=== PATIENT | male | born 1950 | race Hispanic/Latino ===

== ENCOUNTER 2021-06-01 13:44 | Inpatient (IN) | payer OTHER ==
[~2021-06-01] VITALS: Ht 180.3 cm; Wt 63.5 kg
[2021-06-01 13:46] VITALS: BP 115/72
[2021-06-01 15:01] LABS: APPEARANCE,URINE Clear (CLEAR); BILIRUBIN,URINE Negative (NEGATIVE); COLOR,URINE Yellow (YELLOW); GLUCOSE, URINE (UA) Negative (NEGATIVE); KETONES,URINE Trace mg/dL (NEGATIVE); LEUKOCYTE ESTERASE ,URINE Moderate (NEGATIVE); NITRATE,URINE Negative (NEGATIVE); OCCULT BLOOD,URINE Negative (NEGATIVE); PROTEIN,URINE Trace mg/dL (NEGATIVE)
[2021-06-01 15:22] LABS: RBC,URINE 0-1 /HPF (0-1)
[2021-06-01 15:23] LABS: BACTERIA,URINE Few /HPF (None Seen)
[2021-06-01 15:24] LABS: MUCUS,URINE Rare LPF (None Seen); SQUAMOUS EPITHELIAL CELL,UR Few /HPF (0-2); TRANSITIONAL EPI CELLS,URINE Rare /HPF (None Seen)
[2021-06-01 15:27] LABS: BASOPHILS % (AUTO) 0.3 % (0.0-5.0); EOSINOPHILS % (AUTO) 0.1 % (0.0-8.0); LYMPHOCYTES % (AUTO) 5.2 % (21.0-51.0); MEAN CORPUSCULAR HEMOGLOBIN 27.9 pg (27.0-33.0); MEAN CORPUSCULAR HGB CONC 31.7 g/dL (32.0-36.0); MEAN CORPUSCULAR VOLUME 88.2 fL (79-99); MONOCYTES % (AUTO) 6.6 % (3.0-13.0); NEUTROPHILS % (AUTO) 87.4 % (40.0-77.0); PLATELET COUNT (AUTO) 506 K/uL (130-400); RED BLOOD CELL COUNT(AUTO) 4.08 MIL/uL (4.50-6.20); RED CELL DISTRIBUTION WIDTH 14.4 % (11.0-15.5); WHITE BLOOD COUNT (AUTO) 15.7 K/uL (4.8-10.8)
[2021-06-01] MEDS ORDERED: AZITHROMYCIN 250 MG TABLET PO ONE (15:30)
[2021-06-01] MEDS ORDERED: CEFTRIAXONE 1G VIAL IVP ONE (15:30)
[2021-06-01 15:38] LABS: CREATININE 0.8 mg/dL (0.5-1.5); POTASSIUM 3.3 mmol/L (3.5-5.1)
[2021-06-01 15:42] LABS: ALBUMIN 1.9 g/dL (3.5-5.0); BILIRUBIN,TOTAL 0.4 mg/dL (0.2-1.0); TOTAL PROTEIN, SERUM 8.4 g/dL (6.0-8.3)
[2021-06-01 15:52] LABS: CRP QUANTITATIVE 222.1 mg/L (0.00-9.0)
[2021-06-01 15:57] LABS: B-TYPE NATRIURETIC PEPTIDE 270 pg/mL (0-100)
[2021-06-01] MEDS ORDERED: POTASSIUM BICARB/CIT AC 25 MEQ TABLET.EFF PO ONE ×2 (16:00→20:00)
[2021-06-01] MEDS ORDERED: 0.9%NACL 50ML 50 ML IV ONE (16:09)
[2021-06-01] MEDS ORDERED: ONDANSETRON 4MG INJ IV PRN (19:30)
[2021-06-01] MEDS: CEFTRIAXONE 1G VIAL IV SCH (19:30)
[2021-06-01] MEDS ORDERED: GUAIFENESIN-DM 200/20 MG 10 ML PO PRN (19:30)
[2021-06-01] MEDS ORDERED: ACETAMINOPHEN 325 MG TAB PO PRN ×2 (19:30)
[2021-06-01] MEDS ORDERED: NITROGLYCERIN 0.4 MG SL TAB SL PRN (19:30)
[2021-06-01] MEDS ORDERED: HYDRALAZINE 20MG/ML VIAL IV PRN (19:30)
[2021-06-01] MEDS ORDERED: LACTULOSE 20 GM/30 ML UDCUP PO PRN (19:30)
[2021-06-01] MEDS ORDERED: DOCUSATE SODIUM 100 MG CAP PO PRN (19:30)
[2021-06-01] MEDS: DOXYCYCLINE 100MG+NS 250ML 250 ML IV SCH ×2 (20:04→23:00)
[2021-06-01] MEDS: SOLU-MEDROL 125MG VIAL IV SCH (20:04)
[2021-06-01] MEDS: BENZONATATE 100 MG CAPSULE PO SCH (21:21)
[2021-06-01] MEDS: FUROSEMIDE 40MG VIAL IVP SCH ×2 (21:21→23:00)
[2021-06-01] MEDS: FAMOTIDINE 20MG TAB PO SCH (21:21)
[2021-06-01 21:28] LABS: CREATINE KINASE, TOTAL 18 U/L (21-232); MYOGLOBIN 16 ng/mL (10-92); TROPONIN I < 0.04 ng/mL (0.00-0.06)
[2021-06-01 23:00] VITALS: BP 131/71
[2021-06-01] MEDS: IPRATROPIUM/ALBUTEROL SULFATE 3 ML SOLUTION IH SCH (23:27)
[2021-06-02] VITALS (9 sets, daily range): BP systolic 99–127; BP diastolic 56–80
[2021-06-02 05:18] LABS: BASOPHILS % (AUTO) 0.2 % (0.0-5.0); HEMATOCRIT 32.9 % (42-54); LYMPHOCYTES % (AUTO) 3.8 % (21.0-51.0); MEAN CORPUSCULAR HEMOGLOBIN 27.8 pg (27.0-33.0); MEAN CORPUSCULAR HGB CONC 32.2 g/dL (32.0-36.0); MEAN CORPUSCULAR VOLUME 86.4 fL (79-99); MONOCYTES % (AUTO) 0.7 % (3.0-13.0); NEUTROPHILS % (AUTO) 94.9 % (40.0-77.0); PLATELET COUNT (AUTO) 450 K/uL (130-400); RED BLOOD CELL COUNT(AUTO) 3.81 MIL/uL (4.50-6.20); RED CELL DISTRIBUTION WIDTH 14.4 % (11.0-15.5); WHITE BLOOD COUNT (AUTO) 9.7 K/uL (4.8-10.8)
[2021-06-02] MEDS: SOLU-MEDROL 125MG VIAL IV SCH (05:24)
[2021-06-02 05:36] LABS: HEMOGLOBIN A1C 5.9 % (4.0-6.0)
[2021-06-02 05:43] LABS: ALBUMIN 1.9 g/dL (3.5-5.0); B-TYPE NATRIURETIC PEPTIDE 175 pg/mL (0-100); BILIRUBIN,TOTAL 0.2 mg/dL (0.2-1.0); CREATININE 0.8 mg/dL (0.5-1.5); PHOSPHORUS 5.7 mg/dL (2.5-4.9); POTASSIUM 3.7 mmol/L (3.5-5.1); THYROID STIMULATING HORMONE 1.2 uIU/mL (0.36-3.74); TOTAL PROTEIN, SERUM 7.8 g/dL (6.0-8.3)
[2021-06-02 05:44] LABS: CREATINE KINASE, TOTAL 26 U/L (21-232); MYOGLOBIN 21 ng/mL (10-92); TROPONIN I < 0.04 ng/mL (0.00-0.06)
[2021-06-02] MEDS: IPRATROPIUM/ALBUTEROL SULFATE 3 ML SOLUTION IH SCH ×3 (06:59→19:36)
[2021-06-02] MEDS: FAMOTIDINE 20MG TAB PO SCH ×2 (09:07→20:32)
[2021-06-02] MEDS: BENZONATATE 100 MG CAPSULE PO SCH ×3 (09:08→20:32)
[2021-06-02] MEDS: ENOXAPARIN SODIUM 40 MG/0.4 ML SYRINGE SQ SCH (09:08)
[2021-06-02 11:41] LABS: CREATINE KINASE, TOTAL 20 U/L (21-232); MYOGLOBIN 22 ng/mL (10-92); TROPONIN I < 0.04 ng/mL (0.00-0.06)
[2021-06-02] MEDS: DEXAMETHASONE 4 MG TAB PO SCH (12:58)
[2021-06-02] MEDS: DOXYCYCLINE HYCLATE 100 MG TABLET PO SCH ×2 (12:58→20:32)
[2021-06-02] MEDS: FUROSEMIDE 40 MG TABLET PO SCH (12:58)
[2021-06-02] MEDS: CEFTRIAXONE 1G VIAL IV SCH (20:32)
[2021-06-03 00:07] VITALS: BP 137/82
[2021-06-03] MEDS: IPRATROPIUM/ALBUTEROL SULFATE 3 ML SOLUTION IH SCH ×5 (00:29→18:36)
[2021-06-03 04:51] VITALS: BP 106/64
[2021-06-03 07:46] LABS: HEMATOCRIT 31.8 % (42-54); MEAN CORPUSCULAR HEMOGLOBIN 28.2 pg (27.0-33.0); MEAN CORPUSCULAR HGB CONC 32.1 g/dL (32.0-36.0); MEAN CORPUSCULAR VOLUME 87.8 fL (79-99); RED BLOOD CELL COUNT(AUTO) 3.62 MIL/uL (4.50-6.20); RED CELL DISTRIBUTION WIDTH 14.3 % (11.0-15.5); WHITE BLOOD COUNT (AUTO) 24.6 K/uL (4.8-10.8)
[2021-06-03 08:03] LABS: ALBUMIN 1.6 g/dL (3.5-5.0); BILIRUBIN,TOTAL 0.2 mg/dL (0.2-1.0); CREATININE 0.7 mg/dL (0.5-1.5); CRP QUANTITATIVE 99.2 mg/L (0.00-9.0); POTASSIUM 3.7 mmol/L (3.5-5.1); TOTAL PROTEIN, SERUM 7.1 g/dL (6.0-8.3)
[2021-06-03] MEDS: DEXAMETHASONE 4 MG TAB PO SCH (08:41)
[2021-06-03] MEDS: ENOXAPARIN SODIUM 40 MG/0.4 ML SYRINGE SQ SCH (08:42)
[2021-06-03] MEDS: FUROSEMIDE 40 MG TABLET PO SCH (08:42)
[2021-06-03] MEDS: FAMOTIDINE 20MG TAB PO SCH (08:42)
[2021-06-03] MEDS: DOXYCYCLINE HYCLATE 100 MG TABLET PO SCH (08:42)
[2021-06-03] MEDS: BENZONATATE 100 MG CAPSULE PO SCH ×2 (09:11→13:29)
[2021-06-03 09:20] VITALS: BP 133/73
[2021-06-03 12:57] VITALS: BP 125/65
[2021-06-03] MEDS ORDERED: ALBU0.63 IH (14:45)
[2021-06-03] MEDS ORDERED: DOXY100C5 PO (14:45)
[2021-06-03] MEDS ORDERED: DEXA6TAB7 PO (14:45)
[2021-06-03] MEDS ORDERED: BRIM5DRO OU (15:52)
[2021-06-03] MEDS ORDERED: BIMA2.5D4 OU (15:52)
[2021-06-03] MEDS ORDERED: TAMS-1 PO (15:52)
== END 2021-06-03 16:14 | disposition home or self-care (01) | DRG 871 ==
LOC: EDH 13:44 → EDHIP 19:14 → OBSVTOIN 19:14 → EDHIP 06-03 16:13
PROVIDERS: ADMIT Internal Medicine Critical Care Medicine; ATTEND Internal Medicine Critical Care Medicine
DX: A41.9 Sepsis, unspecified organism (principal); J96.01 Acute respiratory failure with hypoxia; J18.9 Pneumonia, unspecified organism; E43 Unspecified severe protein-calorie malnutrition; N39.0 Urinary tract infection, site not specified; Z68.1 Body mass index [BMI] 19.9 or less, adult; N40.0 Benign prostatic hyperplasia without lower urinary tract symptoms; K83.8 Other specified diseases of biliary tract; J84.10 Pulmonary fibrosis, unspecified; E87.6 Hypokalemia; Z20.822 Contact with and (suspected) exposure to COVID-19; Q63.1 Lobulated, fused and horseshoe kidney; Z87.891 Personal history of nicotine dependence; Z87.01 Personal history of pneumonia (recurrent); Z79.899 Other long term (current) drug therapy
CPT/HCPCS: 36415; 71045; 71250; 74176; 74183; 80053; 80061; 81001; 82105; 82378; 82550; 83036; 83605; 83735; 83874; 83880; 84100; 84145; 84443; 84484; 85025; 85027; 86140; 86316; 87040; 87088; 87635; 93005; 93970; 94640; 94664; C9803; G0378; J0696; J1650; J1940; J2930; J3490; J8540